=== PATIENT | male | born 1960 | race Caucasian/White ===

== ENCOUNTER 2018-08-18 13:48 | Observation (INO) | payer OTHER ==
[2018-08-18] MEDS ORDERED: diphenhydrAMINE 25 MG CAP PO PRN (14:49)
[2018-08-18] MEDS ORDERED: DEXAMETHASONE 4 MG/ML VIAL IVP ONE (14:49)
[2018-08-18] MEDS ORDERED: BISACODYL 10 MG SUPP PR PRN (14:49)
[2018-08-18] MEDS ORDERED: MAGNESIUM HYDROXIDE 30 ML UDCUP PO PRN (14:49)
[2018-08-18] MEDS ORDERED: morphINE PCA 30 MG/30 ML PCA IV PRN (14:49)
[2018-08-18] MEDS ORDERED: ONDANSETRON DISINTEGRATING 4 MG TAB PO PRN (14:49)
[2018-08-18] MEDS ORDERED: ONDANSETRON 4 MG/2 ML VIAL IVP PRN (14:49)
[2018-08-18] MEDS ORDERED: NALOXONE HCL 0.4 MG/ML INJ IVP PRN (14:49)
[2018-08-18] MEDS ORDERED: LACTULOSE 20 GM/30 ML UDCUP PO PRN (14:49)
[2018-08-18] MEDS: chlorproMAZINE HCL 25 MG TAB PO PRN ×2 (15:17→18:19)
[2018-08-18] MEDS: METHOCARBAMOL 750 MG TAB PO PRN ×2 (15:23→18:22)
[2018-08-18] MEDS: POLYETHYLENE GLYCOL 3350 17 GM PKT PO SCH ×2 (16:31→21:26)
[2018-08-18] MEDS: NS 1,000 ML IV SCH (16:34)
--- NOTE | 2018-08-18 18:33 | GHP ---
DATE OF ADMISSION: 08/18/2018 CHIEF COMPLAINT: Nausea, vomiting, headache, and general malaise, status post C6-7 cervical fusion. HISTORY OF PRESENT ILLNESS: The patient is a pleasant 57-year-old gentleman, who is [address] C6-7 anterior cervical diskectomy, and arthrodesis on 08/16/2018. Over the past 24 hours, the pat ient has developed unremitting hiccups, as well as nausea, headache, and neck pain with a few episode s of emesis. He presented to our neurosurgical clinic early for an early postoperative appointment t o check on his wound, since he had reported bloody drainage from it after vomiting. Currently, the p atient feels terrible, and is reporting a right frontotemporal headache, difficulty swallowing, poste rior neck pain, and unremitting hiccups. He states that his left arm feels somewhat better since dennis pierre. He denies fevers, chills, or sweats. ALLERGIES: No known drug allergies. REVIEW OF SYSTEMS: 10-point review of systems was obtained, and is negative except for what is state d in the HPI. PHYSICAL EXAM: GENERAL: Pleasant, uncomfortable appearing 57-year-old male. NECK: He is wearing a hard cervical collar. His dressing was removed. His incision is found to be clean, dry, and intact with a Steri-Strip in place. NEURO: He is awake, alert, and oriented x4. He has equal and symmetr ic strength of bilateral upper and lower extremities with normal sensation throughout all dermatomal distributions in the bilateral upper and lower extremities. NECK: Supple. VITAL SIGNS: Blood pres sure is 147/92, heart rate is 81, respiratory rate 16, oxygen saturation is 94% on room air. His tem perature is 36.9. IMPRESSION: This is a 57-year-old male, who is 2 days status post C6-7 anterior cervical diskectomy, and arthrodesis on 08/16/2018. He has developed unremitting hiccups, as well as nausea, vomiting, h eadache, and general malaise for the past 24 hours. He does appear dehydrated, and uncomfortable wit h poor pain control with oral pain medications. PLAN: All above issues were discussed with the patient in detail with Dr. Wheeler. At this ti me, we recommend the patient be admitted to the hospital for rehydration, and pain control, as well a s to be given Thorazine to see if this helps control his hiccups. We will follow along with him jericho ng his hospitalization. All this information was discussed with Dr. Wheeler, and the patient, and his . /[id number]/MODL
[2018-08-18] MEDS: oxyCODONE IR 5 MG TAB PO PRN (19:20)
[2018-08-18] MEDS ORDERED: CYCLOBENZAPRINE 10 MG TAB PO PRN (20:53)
[2018-08-18] MEDS ORDERED: ALBUTEROL 60 PUFFS/8 GM MDI IH PRN (20:53)
[2018-08-18] MEDS ORDERED: TAMSULOSIN HCL 0.4 MG CAP PO SCH (21:00)
[2018-08-18] MEDS: ACETAMINOPHEN 500 MG TAB PO SCH (21:25)
[2018-08-18] MEDS: PREGABALIN 100 MG CAP PO SCH (21:26)
[2018-08-18] MEDS: FAMOTIDINE 20 MG TAB PO SCH (21:26)
[2018-08-18] MEDS: SENNOSIDES/DOCUSATE SODIUM TAB PO SCH (21:27)
[2018-08-18] MEDS: ceFAZolin 2 GM/DEXTROSE 100 ML IV SCH (21:27)
[2018-08-19] MEDS: oxyCODONE IR 5 MG TAB PO PRN ×2 (03:34→13:01)
[2018-08-19] MEDS: NS 1,000 ML IV SCH (03:34)
[2018-08-19] MEDS: chlorproMAZINE HCL 25 MG TAB PO PRN ×2 (03:38→14:54)
[2018-08-19] MEDS: ceFAZolin 2 GM/DEXTROSE 100 ML IV SCH (05:24)
[2018-08-19] MEDS: ACETAMINOPHEN 500 MG TAB PO SCH ×2 (05:24→13:01)
[2018-08-19] MEDS ORDERED: NON-FORMULARY NEW DRUG (Ondansetron Hcl [Zofran] 4 MG) PO PRN (07:24)
[2018-08-19] MEDS ORDERED: NON-FORMULARY NEW DRUG (Tadalafil [Cialis] 5 MG) PO PRN (07:24)
--- NOTE | 2018-08-19 07:24 | SOAPPROG ---
SOAP Progress Note Assessment/Plan: Assessment: 57 yo M POD #3 sp C6/7 ACDF readmitted with dysphagia and hiccups Plan: neuro: stable and improved since yesterday hiccups better with thorazine PT/OT advance diet constipation, on bowel protocol likely dc home later today please call with neuro changes 08/19/18 07:19 Subjective: continued neck pain, no arm pain, no weakness, hiccups better. Objective: Vital Signs Temp Pulse Resp BP Pulse Ox 36.4 C 82 18 154/92 H 92 08/19/18 07:15 08/19/18 04:00 08/19/18 07:15 08/19/18 07:15 08/19/18 07:15 08/18/18 08/19/18 08/20/18 05:59 05:59 05:59 Intake Total 550 Output Total 1975 Balance -1425 AAOX4, +FC PERRL, EOMI, no facial droop 5/5 + light touch C/D/I ICD10 Worksheet Patient Problems: Problems Problem Status Onset COPD (chronic obstructive pulmonary disease) Acute
[2018-08-19] MEDS ORDERED: CETIRIZINE 10 MG TAB PO PRN (07:43)
[2018-08-19] MEDS ORDERED: PANTOPRAZOLE SODIUM 40 MG TAB PO SCH (09:00)
[2018-08-19] MEDS ORDERED: MONTELUKAST SODIUM 10 MG TAB PO SCH (09:00)
[2018-08-19] MEDS ORDERED: NON-FORMULARY NEW DRUG (Fluticasone/Vilanterol [Breo Ellipta 100-25 Mcg Inh] 1 EACH) IH SCH (09:00)
[2018-08-19] MEDS ORDERED: TIOTROPIUM INHALER 18 MCG/DOSE 5 DOSE/MDI IH SCH (09:00)
[2018-08-19] MEDS ORDERED: BECLOMETHASONE QVAR 40 REDIHALER 120 INH/10.6 GM MDI IH SCH (09:00)
[2018-08-19] MEDS: POLYETHYLENE GLYCOL 3350 17 GM PKT PO SCH (09:07)
[2018-08-19] MEDS: PREGABALIN 100 MG CAP PO SCH (09:07)
[2018-08-19] MEDS: FAMOTIDINE 20 MG TAB PO SCH (09:07)
[2018-08-19] MEDS: SENNOSIDES/DOCUSATE SODIUM TAB PO SCH (09:08)
[2018-08-19] MEDS: CEPHALEXIN 250 MG CAP PO SCH ×2 (09:08→14:54)
[2018-08-19 12:51] VITALS: BP 153/102
== END 2018-08-19 15:11 | disposition home or self-care (01) ==
LOC: F3E 14:13
PROVIDERS: ADMIT Neurological Surgery; ATTEND Neurological Surgery
DX: G89.18 Other acute postprocedural pain (principal); R06.6 Hiccough; R53.81 Other malaise; R51 Headache; R11.2 Nausea with vomiting, unspecified; M54.2 Cervicalgia; E86.0 Dehydration; R13.10 Dysphagia, unspecified; K59.00 Constipation, unspecified; Z98.1 Arthrodesis status
CPT/HCPCS: 92610; 97166; G0378; J0690; J1100; J2270